=== PATIENT | male | born 1960 | race Caucasian/White ===

== ENCOUNTER 2025-03-01 08:38 | Outpatient (CLI) | payer MEDICARE, OTHER | END 2025-03-01 08:39 | disposition home or self-care (01) | LOC: CSHWCC 08:38 | PROVIDERS: ATTEND Nurse Practitioner Family | DX: N30.40 Irradiation cystitis without hematuria (principal); N39.46 Mixed incontinence; R35.1 Nocturia | CPT/HCPCS: 82962; G0277; 36416 ==

== ENCOUNTER 2025-03-02 08:24 | Outpatient (CLI) | payer MEDICARE, OTHER | END 2025-03-02 08:25 | disposition home or self-care (01) | LOC: CSHWCC 08:24 | PROVIDERS: ATTEND Nurse Practitioner Family | DX: N30.40 Irradiation cystitis without hematuria (principal); N39.46 Mixed incontinence; R35.1 Nocturia | CPT/HCPCS: 82962; G0277; 36416 ==

== ENCOUNTER 2025-03-05 12:49 | Outpatient (CLI) | payer MEDICARE, OTHER | END 2025-03-05 12:50 | disposition home or self-care (01) | LOC: CSHWCC 12:49 | PROVIDERS: ATTEND Nurse Practitioner Family | DX: N30.40 Irradiation cystitis without hematuria (principal); N39.46 Mixed incontinence; R35.1 Nocturia | CPT/HCPCS: 36416; G0277 ==

== ENCOUNTER 2025-04-03 08:14 | Outpatient (CLI) | payer MEDICARE, OTHER | END 2025-04-03 08:15 | disposition home or self-care (01) | LOC: CSHWCC 08:14 | PROVIDERS: ATTEND Nurse Practitioner Family | DX: N30.40 Irradiation cystitis without hematuria (principal); N39.46 Mixed incontinence; R35.1 Nocturia | CPT/HCPCS: 36416; G0277 ==

== ENCOUNTER 2025-04-04 08:10 | Outpatient (CLI) | payer MEDICARE, OTHER | END 2025-04-04 08:11 | disposition home or self-care (01) | LOC: CSHWCC 08:10 | PROVIDERS: ATTEND Nurse Practitioner Family | DX: N30.40 Irradiation cystitis without hematuria (principal); N39.46 Mixed incontinence; R35.1 Nocturia | CPT/HCPCS: 82962; G0277; 36416 ==

== ENCOUNTER 2025-04-10 10:03 | Outpatient (CLI) | payer MEDICARE, OTHER | END 2025-04-10 10:04 | disposition home or self-care (01) | LOC: CSHWCC 10:03 | PROVIDERS: ATTEND Nurse Practitioner Family | DX: N30.40 Irradiation cystitis without hematuria (principal); N39.46 Mixed incontinence; R35.1 Nocturia | CPT/HCPCS: 36416; G0277 ==

== ENCOUNTER 2025-04-12 09:02 | Outpatient (CLI) | payer MEDICARE, OTHER | END 2025-04-12 09:03 | disposition home or self-care (01) | LOC: CSHWCC 09:02 | PROVIDERS: ATTEND Nurse Practitioner Family | DX: N30.40 Irradiation cystitis without hematuria (principal); N39.46 Mixed incontinence; R35.1 Nocturia | CPT/HCPCS: 82962; G0277; 36416 ==

== ENCOUNTER 2025-04-13 10:15 | Outpatient (CLI) | payer MEDICARE, OTHER | END 2025-04-13 10:16 | disposition home or self-care (01) | LOC: CSHWCC 10:15 | PROVIDERS: ATTEND Nurse Practitioner Family | DX: N30.40 Irradiation cystitis without hematuria (principal); N39.46 Mixed incontinence; R35.1 Nocturia | CPT/HCPCS: 82962; G0277; 36416 ==

== ENCOUNTER 2025-04-17 11:49 | Outpatient (CLI) | payer MEDICARE, OTHER | END 2025-04-17 11:50 | disposition home or self-care (01) | LOC: CSHWCC 11:49 | PROVIDERS: ATTEND Nurse Practitioner Family | DX: N30.40 Irradiation cystitis without hematuria (principal); N39.46 Mixed incontinence; R35.1 Nocturia | CPT/HCPCS: 36416; G0277 ==